=== PATIENT | female | born 1950 | race Caucasian/White ===

== ENCOUNTER → 2016-08-14 | Outpatient (CLI) | payer OTHER | LOC: FIMAGING 13:13 | DX: Z12.31 Encounter for screening mammogram for malignant neoplasm of breast (principal) | CPT/HCPCS: G0202 ==

== ENCOUNTER → 2017-04-10 | Outpatient (CLI) | payer OTHER | LOC: FIMAGING 13:20 | PROVIDERS: ATTEND Internal Medicine | DX: Z13.820 Encounter for screening for osteoporosis (principal); M85.80 Other specified disorders of bone density and structure, unspecified site ==

== ENCOUNTER 2018-04-20 07:26 | Day surgery (SDC) | payer OTHER ==
[2018-04-20] MEDS ORDERED: NS 1,000 ML IV ONE (07:40)
[2018-04-20] MEDS ORDERED: fentaNYL 100 MCG/2 ML INJ IVP PRN (07:40)
[2018-04-20] MEDS ORDERED: FLUMAZENIL 0.5 MG/5 ML MDV IVP PRN (07:40)
[2018-04-20] MEDS ORDERED: ONDANSETRON 4 MG/2 ML VIAL IVP ONE (07:40)
[2018-04-20] MEDS ORDERED: MIDAZOLAM 2 MG/2 ML VIAL IVP PRN (07:40)
[2018-04-20] MEDS ORDERED: NALOXONE HCL 0.4 MG/ML INJ IVP PRN (07:40)
[2018-04-20] MEDS ORDERED: ceFAZolin 2 GM/DEXTROSE 100 ML IV ONE (07:40)
[2018-04-20] MEDS ORDERED: LIDO/EPI 1% **for epidural** 30 ML SDV ONE (08:11)
[2018-04-20] MEDS ORDERED: SODIUM TETRADECYL SULFATE 3% 2 ML VIAL IV ONE (09:36)
[2018-04-20] MEDS ORDERED: MIDAZOLAM 2 MG/2 ML VIAL ONE (10:27)
[2018-04-20] MEDS ORDERED: fentaNYL 100 MCG/2 ML INJ ONE (10:27)
--- NOTE | 2018-04-20 11:00 | PDPROPOC ---
Sedation Plan of Care Sedation Plan of Care: vital signs stable, mental status noted, patient educated of risks, benefits, alternatives, patient can tolerate sedation ASA Classification: ASA 2 Planned drugs: fentanyl, midazolam Mallampati Score: Class 1 Mallampati Reference Image: Patient passed 3-3-2 rule?: Yes
--- NOTE | 2018-04-20 11:10 | PDGENHP ---
History & Physical Chief Complaint: BILATERAL VARICOSE VEINS History of Present Illness: LARGE LT VARICOSE VEINS WITH PAIN AND PRESSURE. Pertinent Past, Social, Family History: non smoker Relevant Physical Exam: large ropey varicose veins mapped out. Cardiorespiratory Assessment: rrr,cta
[2018-04-20] MEDS ORDERED: IBUPROFEN 200 MG TAB PO ONE (11:11)
[2018-04-20] MEDS ORDERED: ONDANSETRON 4 MG/2 ML VIAL IVP PRN (11:11)
[2018-04-20] MEDS ORDERED: HYDROCODONE/APAP 5/325 TAB PO PRN (11:11)
[2018-04-20] MEDS ORDERED: ONDANSETRON DISINTEGRATING 4 MG TAB PO PRN (11:11)
[2018-04-20] MEDS ORDERED: NS 1,000 ML IV SCH (11:15)
--- NOTE | 2018-04-20 11:23 | PDRADPN ---
Radiology Procedure Note Date of Procedure: 04/20/18 Radiologist: Molly Menjivar Anesthesia: IV Sedation Pre-op Diagnosis: large ropey varicose veins Post-op Diagnosis: same Indication: pain and swelling Procedure: laser ablation, phlebectomy, and sclerotherapy Finding(s): large ropey varicose veins removed. Inf/Abcess present in the surg proc area at time of surgery?: No
[2018-04-20 14:18] VITALS: BP 124/75
== END 2018-04-20 14:20 | disposition home or self-care (01) ==
LOC: FIMAGING 07:26
PROVIDERS: ATTEND Radiology Diagnostic Radiology
DX: I83.812 Varicose veins of left lower extremity with pain (principal); I80.02 Phlebitis and thrombophlebitis of superficial vessels of left lower extremity
CPT/HCPCS: J0690; J2250; J2310; J3010

== ENCOUNTER 2018-04-22 07:26 | Day surgery (SDC) | payer OTHER ==
[2018-04-22] MEDS ORDERED: fentaNYL 100 MCG/2 ML INJ IVP PRN (07:45)
[2018-04-22] MEDS ORDERED: FLUMAZENIL 0.5 MG/5 ML MDV IVP PRN (07:45)
[2018-04-22] MEDS ORDERED: ONDANSETRON 4 MG/2 ML VIAL IVP ONE (07:45)
[2018-04-22] MEDS ORDERED: NS 1,000 ML IV ONE (07:45)
[2018-04-22] MEDS ORDERED: MIDAZOLAM 2 MG/2 ML VIAL IVP PRN (07:45)
[2018-04-22] MEDS ORDERED: LIDO/EPI 1% **for epidural** 30 ML SDV ONE (07:45)
[2018-04-22] MEDS ORDERED: SODIUM TETRADECYL SULFATE 3% 2 ML VIAL IV ONE (07:45)
[2018-04-22] MEDS ORDERED: NALOXONE HCL 0.4 MG/ML INJ IVP PRN (07:45)
[2018-04-22] MEDS ORDERED: ceFAZolin 2 GM/DEXTROSE 100 ML IV ONE (07:45)
--- NOTE | 2018-04-22 09:28 | PDPROPOC ---
Sedation Plan of Care Sedation Plan of Care: vital signs stable, mental status noted, patient educated of risks, benefits, alternatives, patient can tolerate sedation ASA Classification: ASA 2 Planned drugs: fentanyl, midazolam Mallampati Score: Class 2 Mallampati Reference Image: Patient passed 3-3-2 rule?: Yes
--- NOTE | 2018-04-22 09:28 | PDGENHP ---
History & Physical Chief Complaint: RLE varicose veins History of Present Illness: S/P treatment on LT. here for treatment on right Pertinent Past, Social, Family History: non smoker Relevant Physical Exam: large veins mapped on RT Cardiorespiratory Assessment: rrr, cta
[2018-04-22] MEDS ORDERED: IBUPROFEN 200 MG TAB PO ONE (11:33)
[2018-04-22] MEDS ORDERED: ONDANSETRON DISINTEGRATING 4 MG TAB PO PRN (11:33)
[2018-04-22] MEDS ORDERED: HYDROCODONE/APAP 5/325 TAB PO PRN (11:33)
[2018-04-22] MEDS ORDERED: ONDANSETRON 4 MG/2 ML VIAL IVP PRN (11:33)
--- NOTE | 2018-04-22 11:35 | PDRADPN ---
Radiology Procedure Note Date of Procedure: 04/22/18 Radiologist: Molly Menjivar Anesthesia: IV Sedation Pre-op Diagnosis: RLE VARICOSE VEINS Post-op Diagnosis: SAME Indication: PAIN AND SWELLING Procedure: ABLATION, SCLEROTHERAPY, PHLEBECTOMY Inf/Abcess present in the surg proc area at time of surgery?: No
[2018-04-22] MEDS ORDERED: NS 1,000 ML IV SCH (11:45)
[2018-04-22 12:45] VITALS: BP 104/57
== END 2018-04-22 14:46 | disposition home or self-care (01) ==
LOC: FIMAGING 07:26
PROVIDERS: ATTEND Radiology Diagnostic Radiology
DX: I83.811 Varicose veins of right lower extremity with pain (principal); I80.03 Phlebitis and thrombophlebitis of superficial vessels of lower extremities, bilateral
CPT/HCPCS: J0690; J2250; J2310; J3010

== ENCOUNTER → 2018-05-07 | Outpatient (CLI) | payer OTHER | LOC: FIMAGING 16:26 | PROVIDERS: ATTEND Radiology Diagnostic Radiology | DX: Z09 Encounter for follow-up examination after completed treatment for conditions other than malignant neoplasm (principal); Z98.890 Other specified postprocedural states ==